=== PATIENT | female | born 1980 | race Two or more races ===

== ENCOUNTER 2019-07-14 13:22 | Emergency (ER) | payer MEDICAID ==
[~2019-07-14] VITALS: Ht 165.1 cm; Wt 57.0 kg
[2019-07-14 14:35] LABS: HEMATOCRIT. 35.7 % (36.0-48.0); HEMOGLOBIN. 12.1 g/dL (12.0-16.0); MEAN CORPUSCULAR HEMOGLOBIN 31.8 pg (28.0-32.0); MEAN CORPUSCULAR VOLUME 93.8 fL (81.0-99.0); MEAN PLATELET VOLUME 7.8 fl (7.4-10.4); PLATELET 299 x1000/uL (130-400)
[2019-07-14 14:39] LABS: PROTHROMBIN TIME 10.6 sec (9.6-11.0)
[2019-07-14 14:41] LABS: CHLORIDE 106 mEq/L (98-107)
[2019-07-14] MEDS ORDERED: SODIUM CHLORIDE 0.9% 1,000 ML IV ONE (14:57)
[2019-07-14] MEDS ORDERED: ONDANSETRON HCL 4MG/2ML INJ IV STA (14:57)
[2019-07-14] MEDS ORDERED: MAGNESIUM/ALUMINUM HYDROXIDE/SIMETHICONE 30ML UDC PO ONE (15:00)
[2019-07-14] MEDS ORDERED: FAMOTIDINE 20MG/2ML VIAL IV ONE (15:00)
[2019-07-14 15:01] LABS: PLATELET ESTIMATE NORMAL
[2019-07-14 15:14] LABS: ETHANOL BLOOD < 10 mg/dL
[2019-07-14 15:19] LABS: HCG SCREEN NEGATIVE
[2019-07-14 15:27] LABS: CLARITY URINE CLEAR (CLEAR); COLOR URINE YELLOW (YELLOW); KETONES URINE NEGATIVE (NEGATIVE); LEUKOCYTE ESTERASE URINE 2+ (NEGATIVE); NITRITE URINE NEGATIVE (NEGATIVE); OCCULT BLOOD URINE NEGATIVE (NEGATIVE); PH URINE 5.5 (4.5-8.0); PROTEIN URINE NEGATIVE (NEGATIVE); UROBILINOGEN URINE 0.2 E.U./dL (0.2-1.0)
[2019-07-14 15:54] LABS: *BENZODIAZEPINES SCREEN URINE NEGATIVE (NEGATIVE); *COCAINE SCREEN URINE NEGATIVE (NEGATIVE)
[2019-07-14 15:55] LABS: *AMPHETAMINES SCREEN URINE NEGATIVE (NEGATIVE); *BARBITURATES SCREEN URINE NEGATIVE (NEGATIVE); CANNABINOID URINE SCREEN NEGATIVE (NEGATIVE); METHADONE URINE SCREEN NEGATIVE (NEGATIVE); OPIATES URINE SCREEN NEGATIVE (NEGATIVE); PHENCYCLIDINE URINE SCREEN NEGATIVE (NEGATIVE)
[2019-07-14 20:00] VITALS: BP 97/62
== END 2019-07-14 20:02 | disposition home or self-care (01) ==
LOC: ER 13:22
DX: K29.70 Gastritis, unspecified, without bleeding (principal); N39.0 Urinary tract infection, site not specified
CPT/HCPCS: 36415; 71045; 76705; 80053; 80305; 80320; 81003; 81025; 83605; 83690; 84145; 84484; 84703; 85025; 85610; 87040; 87086; 93005; 96361; 96374; 96375; 99284; J2405; J3490; J7030; G0480